=== PATIENT | female | born 1960 | race Caucasian/White ===

== ENCOUNTER 2018-10-25 07:24 | Day surgery (SDC) | payer OTHER ==
[2018-10-25] MEDS: CEFAZOLIN 2 GM/50 ML (PMX) 50 ML IVPB (08:00)
[2018-10-25] MEDS ORDERED: PROPOFOL 20 ML (08:52)
[2018-10-25] MEDS ORDERED: CEFAZOLIN 1 GM INJ (08:52)
[2018-10-25] MEDS ORDERED: FENTAnyl 50 MCG/ML VIAL (08:52)
[2018-10-25] MEDS ORDERED: NEOSTIGMINE 3 MG/3 ML SYRINGE (08:52)
[2018-10-25] MEDS ORDERED: GLYCOPYRROLATE 0.4 MG INJ (08:52)
[2018-10-25] MEDS ORDERED: ROCURONIUM 50 MG INJ (08:52)
[2018-10-25] MEDS ORDERED: MIDAZOLAM 1 MG/ML 2 ML INJ (08:53)
[2018-10-25] MEDS ORDERED: ONDANSETRON 4 MG INJ (08:54)
[2018-10-25] MEDS ORDERED: DEXAMETHASONE 4 MG/ML 5 ML INJ (08:54)
[2018-10-25] MEDS ORDERED: SOD CHLORIDE 0.9% 1,000 ML IV (09:00)
[2018-10-25] MEDS ORDERED: ROPIVACAINE 0.5 % 30 ML VIAL (09:01)
[2018-10-25] MEDS ORDERED: BUPIVACAINE 0.25% (MPF) 30 ML INJ (09:41)
[2018-10-25] MEDS ORDERED: OXYCODONE/ACETAMINOPHEN (5/325) TAB PO (10:00)
[2018-10-25] MEDS ORDERED: TRIMETHOBENZAMIDE 100 MG/ML VIAL IM (10:00)
[2018-10-25] MEDS ORDERED: EPHEDrine 25 MG/5 ML SYG IV (10:00)
[2018-10-25] MEDS ORDERED: HYDROmorphONE 1 MG/5 ML IV SYRINGE IV ×2 (10:00)
[2018-10-25] MEDS ORDERED: FENTAnyl 50 MCG/ML VIAL IV (10:00)
[2018-10-25] MEDS ORDERED: ALBUTEROL 0.083% (NEB) 2.5 MG/3 ML AMP HHN (10:00)
[2018-10-25] MEDS ORDERED: IPRATROPIUM (NEB) 0.5 MG/2.5 ML AMP HHN (10:00)
[2018-10-25] MEDS ORDERED: MEPERIDINE 25 MG INJ IV (10:00)
[2018-10-25] MEDS ORDERED: DIPHENHYDRAMINE 50 MG INJ IV (10:00)
[2018-10-25] MEDS ORDERED: ONDANSETRON 4 MG INJ IV (10:00)
[2018-10-25] MEDS ORDERED: MIDAZOLAM 1 MG/ML 2 ML INJ IV (10:00)
[2018-10-25] MEDS ORDERED: hydrALAzine 20 MG INJ IV (10:00)
[2018-10-25] MEDS ORDERED: LABETALOL HCL 20MG INJ IV (10:00)
[2018-10-25] MEDS ORDERED: SUGAMMADEX SODIUM 200 MG/2 ML VIAL IV (11:11)
[2018-10-25] MEDS: POLYMYXIN/BACITRACIN 1L IRRIG IRR (11:16)
[2018-10-25] MEDS: FENTAnyl 50 MCG/ML VIAL IV ×2 (11:23→11:41)
[2018-10-25] MEDS ORDERED: HYDROCODONE/APAP (5/325) TAB PO (11:30)
[2018-10-25] MEDS: HYDROmorphONE 1 MG/5 ML IV SYRINGE IV (12:04)
[2018-10-25] MEDS ORDERED: POLYMYXIN/BACITRACIN 1L IRRIG (14:03)
[2018-10-25] MEDS: OXYCODONE/ACETAMINOPHEN (5/325) TAB PO (14:27)
== END 2018-10-25 15:00 | disposition home or self-care (01) ==
LOC: SDS 07:24
DX: K43.6 Other and unspecified ventral hernia with obstruction, without gangrene (principal)
CPT/HCPCS: 49653; 93005